=== PATIENT | female | born 2000 | race Two or more races ===

== ENCOUNTER 2021-06-03 12:40 | Emergency (ER) | payer MEDICAID ==
[~2021-06-03] VITALS: Ht 152.4 cm; Wt 67.0 kg
--- NOTE | 2021-06-03 12:42 | NUR ---
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
[2021-06-03] MEDS ORDERED: LIDOCAINE 1%, 10ML INFIL ONE (13:00)
--- NOTE | 2021-06-03 15:10 | NUR ---
pt to room 35 from lobby. pt presents to ed after sustaining laceration to right forearm after "banging on glass window to get in house." was locked out. last tdap >5 yrs. pt a&o, resps even and unlabored, bleeding controlled with gauze wrap secured prior to arrival.
[2021-06-03] MEDS ORDERED: LIDOCAINE-MPF 1%, 5ML ONE ×2 (15:36→15:42)
--- NOTE | 2021-06-03 16:00 | NUR ---
EDPA AT BEDSIDE FOR SUTURE.
[2021-06-03 18:05] VITALS: BP 119/65
--- NOTE | 2021-06-03 18:06 | NUR ---
sutures complete, wound dressed, cms intact to right arm. RN and EDPA spoke with pt and parents who confirmed pt has received tdap <5 yrs ago. pt a&o, resps even and unlabored, nadn. awaiting dc paperwork from at this time. notified pt requesting dc. parents at bedside.
--- NOTE | 2021-06-03 18:59 | NUR ---
Patient/Caregiver given discharge instructions and they have confirmed that they understand the instructions. Patient ambulatory with steady gait. NAD, all questions answered appropriately, denies additional needs at this time. No personal belongings left in room after discharge.
== END 2021-06-03 19:01 | disposition home or self-care (01) ==
LOC: ED 15:25
DX: S41.111A Laceration without foreign body of right upper arm, initial encounter (principal); W25.XXXA Contact with sharp glass, initial encounter; Y93.89 Activity, other specified; Y92.009 Unspecified place in unspecified non-institutional (private) residence as the place of occurrence of the external cause; Y99.8 Other external cause status
CPT/HCPCS: 12034; 73090; 99284; J3490

== ENCOUNTER 2021-06-16 08:20 | Emergency (ER) | payer MEDICAID ==
[~2021-06-16] VITALS: Ht 152.4 cm; Wt 69.1 kg
[2021-06-16 08:44] VITALS: BP 117/65
== END 2021-06-16 09:00 | disposition home or self-care (01) ==
LOC: ED 08:25
DX: S51.811D Laceration without foreign body of right forearm, subsequent encounter (principal); X58.XXXD Exposure to other specified factors, subsequent encounter
CPT/HCPCS: 99281